=== PATIENT | male | born 1970 | race Caucasian/White ===

== ENCOUNTER 2016-10-30 21:44 | Inpatient (IN) | payer OTHER ==
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
--- NOTE | ~2016-10-30 | PN ---
Unit #: [id number] #: [id number] Patient: VALERIE OSORIO [id number] [facility] [address] [place] [address] [id number] MR#: [id number] NAME: VALERIE OSORIO. ROOM: P210 Age: 46 Sex: M Admission Date: 10/30/2016 : 1970 Attending Physician: Noah Bob M.D. Admitting Physician: Noah Bob M.D. Primary Care Physician: Primary Care Physician Carolyn EMANUEL PROGRESS NOTES DATE 11/02/2016 DISCUSSION Valerie is compliant with medication. She is still isolated with minimal speech and has minimal memory of event prior to coming into the hospital. She is alert and fully oriented. Memory and concentration are tees-os-wupm. Thought processes are goal-directed with some evidence of internal stimuli. ASSESSMENT Substance abuse psychotic disorder. PLAN Continue current treatment plan. Dictated by... Noah Bob M.D. [facility]/to TD: 11/03/2016 14:00 JOB #: [id number] [facility] PROGRESS NOTES X Noah Bob MD PROGRESS NOTE
--- NOTE | ~2016-10-30 | HP ---
Unit #: [id number] #: [id number] Patient: KIMBERLEY OSORIO [id number] [place] [address] [id number] MR#: [id number] NAME: KIMBERLEY OSORIO. ROOM: [facility] Age: 46 Sex: M Admission Date: 10/30/2016 : 1970 Attending Physician: Noah Bob M.D. Admitting Physician: Noah Bob M.D. Primary Care Physician: Primary Care Physician No HISTORY AND PHYSICAL HISTORY OF PRESENT ILLNESS Kimberley is a 46 year old admitted to [address] [place] [address] because of his polysubstance abuse which includes IV heroin. PAST MEDICAL HISTORY 1. Long history of opioid abuse to include IV heroin. 2. Hepatitis C. PAST SURGICAL HISTORY 1. Umbilical hernia repair. 2. Rhinoplasty. ALLERGIES No known drug allergies. SOCIAL HISTORY Smokes one pack per day. Denies alcohol. Admits to long history of opioid abuse to include IV heroin. FAMILY HISTORY Medically Noncontributory. REVIEW OF SYSTEMS CONSTITUTIONAL: No fever or chills. HEENT: Denies any sore throat, ear pain or runny nose. CARDIOVASCULAR: Denies chest pain, irregular heart rhythm or palpitations. CHEST: Denies shortness of breath or cough. No hemoptysis. GASTROINTESTINAL: Denies nausea, vomiting, diarrhea or chronic constipation. ENDOCRINE: Denies history of increased thirst or urination. No recent significant weight loss or gain. GENITOURINARY: Denies dysuria, frequency, or hematuria. SKIN: Denies any rashes. HEMATOLOGIC: Denies history of increased bleeding or bruising. MUSCULOSKELETAL: Denies any hot, swollen joints. No generalized muscle pain. NEUROLOGIC: Denies problems with vision or speech. No frequent, severe headaches. No numbness, tingling or weakness in any extremities. Denies loss of bladder or bowel control. CURRENT MEDICATIONS Detox protocol. Unit #: [id number] #: [id number] Patient: KIMBERLEY OSORIO PHYSICAL EXAMINATION GENERAL: Alert, well nourished. No apparent distress. VITAL SIGNS: Blood pressure 124/82, heart rate 94, respirations 16, and temperature 98.6. WEIGHT: 186. HEIGHT: 5 feet 9 inches. SKIN: Warm and dry without rash or lesion. HEENT: Normocephalic. TMs not viewed. Oral and nasal passages clear. Conjunctivae clear. PERRLA. EOMs intact. NECK: Supple without lymphadenopathy or thyromegaly. HEART: Regular rate and rhythm without murmur. LUNGS: Clear. ABDOMEN: Soft, nontender. : Not done. EXTREMITIES: No evidence of cyanosis, clubbing or edema. Moves all without focal deficit. NEUROLOGICAL: Grossly within normal limits. Cranial Nerves: II: Visual rojas are intact. III, IV AND : Extraocular movements are intact. Pupils are equal, round and reactive to light. V: Facial sensation is grossly normal. VII: Facial movements and expression are normal. VIII: Auditory acuity grossly intact. IX, X: Uvula is midline. Phonation is normal. XI: Patient shrugs shoulders and turns head normally. XII: Tongue protrudes in the midline. Sensory and Motor Function: Sensory and motor sensation is grossly normal. Motor: moves all extremities well. Coordination: Gait is normal. Deep Tendon Reflexes: Intact. IMPRESSION Psychiatric admission. RECOMMENDATIONS PSYCHIATRIC: Per psychiatrist. MEDICAL: I see no contraindication to participate in this facility's activities. MEDICAL PROGNOSIS Good. MEDICAL CONDITION Stable. Dictated by... Nisha Zaldivar P.A.-C. for Serge Muhammad/nora TD: 11/01/2016 12:18 JOB #: [id number] Unit #: [id number] #: [id number] Patient: KIMBERLEY OSORIO HISTORY AND PHYSICAL X Nisha Zaldivar HISTORY AND PHYSICAL
[2016-11-01 13:47] LABS: BASOPHIL% 0.1 % (0-2.5); EOSINOPHIL# 0.3 X10e3 (0-0.7); EOSINOPHIL% 2.5 % (0.0-7.0); HEMATOCRIT 38.4 % (38.0-50.0); HEMOGLOBIN 12.9 gm/dL (13.0-16.0); LYMPHOCYTE# 1.6 X10e3 (1.0-3.5); LYMPHOCYTE% 12.7 % (17.0-45.0); MEAN CELL VOLUME 92.2 FL (83-96); MEAN CORPUSCULAR HGB CONC 33.7 g/dL (30-36); MEAN PLATELET VOLUME 7.2 FL (6.5-11.5); MONOCYTE# 0.9 X10e3 (0-1.0); MONOCYTE% 6.8 % (3.0-12.0); NEUTROPHIL# 9.8 X10e3 (1.5-7.1); NEUTROPHIL% 77.9 % (40-75); PLATELET COUNT 287 X10e3 (140-420); RED BLOOD COUNT 4.17 X10e (3.90-5.60); RED CELL DISTRIBUTION WIDTH 12.9 % (11.0-15.5); WHITE BLOOD COUNT 12.6 X10e3 (4.0-10.5)
[2016-11-01 13:53] LABS: DIFF IND NO
[2016-11-01 14:00] LABS: ALBUMIN SERUM 2.8 g/dL (3.5-5.0); ALKALINE PHOSPHATASE 71 U/L (32-92); ALT (SGPT) 18 U/L (10-40); AST (SGOT) 21 U/L (10-42); BILIRUBIN,TOTAL 0.3 mg/dL (0.2-2.0); BLOOD UREA NITROGEN 6 mg/dL (9-23); BUN/CREATININE RATIO 8.57; CALCIUM SERUM 8.8 mg/dL (8.4-10.2); CARBON DIOXIDE 26 mmol/L (22-31); CHLORIDE 109 mmol/L (100-111); CREATININE SERUM 0.7 mg/dL (0.6-1.4); GLOM FILT RATE Estimated ABOVE60 mL/min (>60); GLUCOSE FASTING 145 mg/dL (70-110); PROTEIN TOTAL SERUM 5.9 g/dL (6.0-8.3); SODIUM 142 mmol/L (135-145)
== END 2016-11-03 14:40 | DRG 897 ==
LOC: P2S 21:44
PROVIDERS: Psychiatry & Neurology Psychiatry
PROC: HZ2ZZZZ Detoxification Services for Substance Abuse Treatment (ICD-10-PCS; principal; 2016-10-31)
DX: F11.23 Opioid dependence with withdrawal (principal); B19.20 Unspecified viral hepatitis C without hepatic coma; F17.210 Nicotine dependence, cigarettes, uncomplicated
CPT/HCPCS: 80053; 85025

== ENCOUNTER 2017-03-08 17:23 | Emergency (ER) | payer OTHER ==
[~2017-03-08] VITALS: Ht 175.3 cm; Wt 97.5 kg
== END 2017-03-08 17:32 | disposition left against medical advice (07) ==
LOC: SED 17:23
DX: Z53.21 Procedure and treatment not carried out due to patient leaving prior to being seen by health care provider (principal)